=== PATIENT | male | born 1945 | race Caucasian/White ===

== ENCOUNTER 2020-06-27 18:29 | Emergency (ER) | payer MEDICARE, SELFPAY | END 2020-06-27 18:30 | disposition left against medical advice (07) | PROVIDERS: Emergency Provider Nurse Practitioner; PCP Family Medicine | DX: Z53.21 Procedure and treatment not carried out due to patient leaving prior to being seen by health care provider (principal) | CPT/HCPCS: 99199 ==

== ENCOUNTER 2021-09-28 13:30 | Emergency (ER) | payer MEDICARE, SELFPAY ==
[2021-09-28 13:39] VITALS: BP 132/66; PULSE 62; RESP 16; TEMP 36.9; O2SAT 98
--- NOTE | 2021-09-28 13:40 | ED.WOUNDLAC ---
HPI - Wound/Laceration General Chief Complaint: Extremity Injury, Upper Stated Complaint: Left Hand Injury/Wound Time Seen by Provider: 09/28/21 13:40 Source: patient and RN notes reviewed History of Present Illness HPI narrative: Patient is a 76-year-old male that presents the urgent care with complaints of a scrape to the left hand. Patient states that he hit it on a javi piece of metal underneath his truck on Sunday. Patient states that his tetanus shot is 7 years old but his primary care doctor recommended that he update his tetanus. Patient states he has been keeping the wound clean and covering it at night. No other acute complaints. No acute distress noted. Patient aware of the plan of care. Some parts of this dictation were generated by voice recognition software and may contain typographical and/or grammatical inaccuracies. Related Data Home Medications Medication Instructions Recorded Confirmed meloxicam 15 mg PO DAILY 09/28/21 09/28/21 omeprazole 40 mg PO DAILY 09/28/21 09/28/21 oxycodone-acetaminophen 1 tablet PO PRN 09/28/21 09/28/21 rosuvastatin 10 mg PO DAILY 09/28/21 09/28/21 tamsulosin 0.4 mg PO DAILY 09/28/21 09/28/21 zolpidem 5 mg PO DAILY 09/28/21 09/28/21 Allergies Allergy/AdvReac Type Severity Reaction Status Date / Time No Known Allergies Allergy Verified 09/28/21 13:45 Review of Systems Review of Systems: CONSTITUTIONAL: Denies fever, chills, or sweats. EYES: Denies visual changes, redness, or discharge. ENT: Denies rhinorrhea, congestion, sore throat, or otalgia. CARDIOVASCULAR: Denies chest pain, palpitations, or edema. RESPIRATORY: Denies cough or dyspnea. GASTROINTESTINAL: Denies abdominal pain, nausea, vomiting, or diarrhea. GENITOURINARY: Denies dysuria or hematuria. SKIN: Reports of a wound to the top of the left hand MUSCULOSKELETAL: Denies back pain, joint pain, or myalgia. NEUROLOGIC: Denies headache, numbness, or weakness. All other systems reviewed are negative, except as documented in HPI. [facility] Family History Family History (Updated 01/15/14 @ 07:13 by DOCTOR UNKNOWN) Father Hypertension Mother Hypertension Family history of chronic obstructive pulmonary disease Family history of congestive heart failure Social History Social History Smoking status: Never smoker Alcohol intake: current Comments Coumadin nurse note Exam Narrative: GENERAL: This is a well-nourished, well-developed patient, in no apparent distress. HEAD: normocephalic, atraumatic. EYES: PERRL. Sclera clear/white. Vision is grossly intact. EARS: External ears normal NOSE: External nose normal with no obvious nasal discharge, nares without redness, no rhinorrhea. THROAT: Mucous membranes moist NECK: Neck supple CARDIOVASCULAR: Regular rate and rhythm without murmurs, gallops, or rubs. RESPIRATORY: Clear to auscultation. Breath sounds equal bilaterally. No wheezes, rales, or rhonchi. SKIN: Healing superficial /flap 1cm, skin tear to the dorsal aspect of the left hand with mild surrounding erythema. NEURO: awake, alert, and oriented to person, place and time. There were no obvious focal neurologic abnormalities. EXTREMITIES: No clubbing, cyanosis, or edema. Course Course Level of Care: Express Care Visit Vital Signs Vital signs: Vital Signs Temperature 98.4 F 09/28/21 13:39 Pulse Rate 62 09/28/21 13:39 Respiratory Rate 16 09/28/21 13:39 Blood Pressure 132/66 09/28/21 13:39 Pulse Oximetry 98 09/28/21 13:39 Temperature 98.4 F 09/28/21 13:39 Pulse Rate 62 09/28/21 13:39 Respiratory Rate 16 09/28/21 13:39 Blood Pressure 132/66 09/28/21 13:39 Pulse Oximetry 98 09/28/21 13:39 Reviewed MDM - Wound/Laceration MDM Narrative Medical decision making narrative: Advised the patient to keep the wound clean with plain Dial soap and water. Use the prescription cream to the affected area twice a day. May continue to cover at night or if at risk of being so
[2021-09-28] MEDS: TETANUS,DIPHTHERIA,AC PERTUSSIS ADULT (0.5 ML) BOOSTRIX IM (13:57)
== END 2021-09-28 14:21 | disposition home or self-care (01) ==
PROVIDERS: Emergency Provider Nurse Practitioner Family; PCP Family Medicine
DX: S61.412A Laceration without foreign body of left hand, initial encounter (principal); W22.8XXA Striking against or struck by other objects, initial encounter; Z23 Encounter for immunization
CPT/HCPCS: 90471; 90715; 99213; G0463